=== PATIENT | female | born 1935 | race Two or more races ===

== ENCOUNTER → 2016-04-05 | Outpatient (CLI) | payer OTHER ==
--- NOTE | 2016-04-05 17:42 | DX ---
Left Knee, 3 Views History: Left knee pain. Findings: No acute fracture or dislocation identified. Chondrocalcinosis noted in the lateral tibiofe moral compartment. Moderate medial and lateral tibiofemoral joint space narrowing, more prominent med ially. There are medial and lateral tibial plateau and medial femoral condyle osteophytes. Severe pat ellar osteophytes. Severe lateral patellofemoral joint space narrowing with subchondral sclerosis. Magdiel ne densities lateral to the lateral femoral condyle measuring 2.3 x 0.7 cm probably from old trauma. No definite joint effusion. Impression: 1. 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 2. 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
== END ==
LOC: BRMIMAGING 09:18
PROVIDERS: ATTEND Physician Assistant
DX: M25.562 Pain in left knee (principal); M17.12 Unilateral primary osteoarthritis, left knee; M11.262 Other chondrocalcinosis, left knee
CPT/HCPCS: 73562-PO

== ENCOUNTER → 2016-10-03 | Outpatient (CLI) | payer OTHER, MEDICAID | LOC: BRMIMAGING 14:49 | PROVIDERS: ATTEND Family Medicine | DX: N28.1 Cyst of kidney, acquired (principal) | CPT/HCPCS: 76770-PO ==